=== PATIENT | male | born 1995 ===

== ENCOUNTER 2018-06-12 11:08 | Emergency (ER) | payer SELFPAY ==
--- NOTE | 2018-06-12 11:19 | ER Report ---
History and Physical Time Seen By MD: 11:19 Hx. of Stated Complaint: COUGH, CHILLS AND BODY ACHES THAT STARTED YESTERDAY HPI/ROS CHIEF COMPLAINT: Cough, body aches, chills and sweats HISTORY OF PRESENT ILLNESS: 23-year-old male patient presents to emergency room with complaint of cough, body aches, chills and sweats. Patient states this started yesterday. Patient states he's feeling fine until this started. He states that he may have had a fever, he is unsure as he has not checked it. He denies any nausea, vomiting or diarrhea. Patient states he does have the same cough that he had a year ago when he had pertussis. He states he is not able to be vaccinated for pertussis is concerning may have gotten it again. He states that he is achy all over. He states he is not taking any medication for this. REVIEW OF SYSTEMS: Respiratory: As noted above Cardiovascular: No chest pain, no palpitations. Gastrointestinal: No vomiting, no abdominal pain. Musculoskeletal: No back pain. Allergies: Coded Allergies: Pertussis Vaccines (Verified Allergy, Mild, RASH, 06/12/18) Home Meds Active Scripts Oseltamivir Phosphate (TAMIFLU) 75 Mg Cap, 75 MG PO BID, #10 CAP Prov:CARLITOS MINER [employer] 06/12/18 Reported Medications Venlafaxine Hcl (EFFEXOR XR) 150 Mg Cap.er.24h, 150 MG PO QDAY 06/12/18 Past Medical/Surgical History Patient has a past medical history of depression, pertussis. Patient has a surgical history of tissue removed. Reviewed Nurses Notes: Yes Hx Substance Use Disorder: No Constitutional Vital Sign - Last 24 Hours 06/12/18 06/12/18 06/12/18 06/12/18 11:11 11:14 11:38 12:08 Temp 98.8 Pulse 108 105 100 Resp 16 B/P (MAP) 117/73 (88) 117/73 Pulse Ox 93 92 93 O2 Delivery Room Air 06/12/18 06/12/18 12:10 12:12 B/P (MAP) 113/72 (86) 113/72 (86) Pulse Ox 95 O2 Delivery Room Air Physical Exam General Appearance: The patient is alert, has no immediate need for airway protection and no current signs of toxicity. Respiratory: Chest is non tender, lungs are clear to auscultation. Cardiac: regular rhythm, patient is tachycardic. Gastrointestinal: Abdomen is soft and non tender, no masses, bowel sounds normal. Musculoskeletal: Neck: Neck is supple and non tender. Extremities have full range of motion and are non tender. Skin: No rashes or lesions. DIFFERENTIAL DIAGNOSIS: After history and physical exam differential diagnosis was considered for viral influenza, pneumonia, pertussis. Medical Decision Making Data Points Result Diagram: 06/12/18 1134 06/12/18 1134 Laboratory Hematology Test 06/12/18 11:13 06/12/18 11:34 Influenza Virus Type A (PCR) Positive (NEGATIVE) Influenza Virus Type B (PCR) Negative (NEGATIVE) Red Blood Count 5.02 M/uL (4.00-5.60) Mean Corpuscular Volume 91.6 fL (80.0-96.0) Mean Corpuscular Hemoglobin 31.6 pg (26.0-33.0) Mean Corpuscular Hemoglobin Concent 34.4 g/dL (32.0-36.0) Red Cell Distribution Width 12.7 % (11.5-14.5) Mean Platelet Volume 7.5 fL (7.2-11.1) Neutrophils (%) (Auto) 85.7 % (39.4-72.5) Lymphocytes (%) (Auto) 5.8 % (17.6-49.6) Monocytes (%) (Auto) 6.4 % (4.1-12.4) Eosinophils (%) (Auto) 1.6 % (0.4-6.7) Basophils (%) (Auto) 0.5 % (0.3-1.4) Nucleated RBC Relative Count (auto) 0.0 /100WBC Neutrophils # (Auto) 5.2 K/uL (2.0-7.4) Lymphocytes # (Auto) 0.4 K/uL (1.3-3.6) Monocytes # (Auto) 0.4 K/uL (0.3-1.0) Eosinophils # (Auto) 0.1 K/uL (0.0-0.5) Basophils # (Auto) 0.0 K/uL (0.0-0.1) Nucleated RBC Absolute Count (auto) 0.00 K/uL Sodium Level 137 mmol/L (137-145) Potassium Level 3.9 mmol/L (3.5-5.0) Chloride Level 104 mmol/L (98-107) Carbon Dioxide Level 22 mmol/L (22-30) Blood Urea Nitrogen 15 mg/dl (9-21) Creatinine 0.90 mg/dl (0.66-1.25) Glomerular Filtration Rate Calc > 60.0 Random Glucose 124 mg/dl (75-110) Calcium Level 9.3 mg/dl (8.4-10.2) Total Bilirubin 0.4 mg/dl (0.2-1.3) Aspartate Amino Transf (AST/SGOT) 77 U/L (0-35) Alanine Aminotransferase (ALT/SGPT) 140 U/L (0-56) Alkaline Phosphatase 95 U/L (0-126) Total Protein 7.5 g/dl (6.3-8.2) Albumin 4.4 g/dl (3.5-5.0) Chemistry Test 06/12/18 11:13 06/12/18 11:34 Influenza Virus Type A (PCR) Positive (NEGATIVE) Influenza Virus Type B (PCR) Negative (NEGATIVE) White Blood Count 6.0 k/uL (4.5-11.0) Red Blood Count 5.02 M/uL (4.00-5.60) Hemoglobin 15.8 g/dL (14.0-18.0) Hematocrit 46.0 % (42.0-52.0) Mean Corpuscular Volume 91.6 fL (80.0-96.0) Mean Corpuscular Hemoglobin 31.6 pg (26.0-33.0) Mean Corpuscular Hemoglobin Concent 34.4 g/dL (32.0-36.0) Red Cell Distribution Width 12.7 % (11.5-14.5) Platelet Count 239 K/uL (150-450) Mean Platelet Volume 7.5 fL (7.2-11.1) Neutrophils (%) (Auto) 85.7 % (39.4-72.5) Lymphocytes (%) (Auto) 5.8 % (17.6-49.6) Monocytes (%) (Auto) 6.4 % (4.1-12.4) Eosinophils (%) (Auto) 1.6 % (0.4-6.7) Basophils (%) (Auto) 0.5 % (0.3-1.4) Nucleated RBC Relative Count (auto) 0.0 /100WBC Neutrophils # (Auto) 5.2 K/uL (2.0-7.4) Lymphocytes # (Auto) 0.4 K/uL (1.3-3.6) Monocytes # (Auto) 0.4 K/uL (0.3-1.0) Eosinophils # (Auto) 0.1 K/uL (0.0-0.5) Basophils # (Auto) 0.0 K/uL (0.0-0.1) Nucleated RBC Absolute Count (auto) 0.00 K/uL Glomerular Filtration Rate Calc > 60.0 Calcium Level 9.3 mg/dl (8.4-10.2) Total Bilirubin 0.4 mg/dl (0.2-1.3) Aspartate Amino Transf (AST/SGOT) 77 U/L (0-35) Alanine Aminotransferase (ALT/SGPT) 140 U/L (0-56) Alkaline Phosphatase 95 U/L (0-126) Total Protein 7.5 g/dl (6.3-8.2) Albumin 4.4 g/dl (3.5-5.0) EKG/Imaging Imaging Study: Frontal and lateral views of the chest Indication: Cough, shortness of breath, chest tightness Comparison study: None Findings: PA and lateral views of the chest demonstrate no evidence of acute infiltrate. There is no evidence of pleural effusion. There is no evidence of pneumothorax. The mediastinal, cardiac, and diaphragmatic contours are unremarkable. The visualized bony structures are unremarkable. IMPRESSION: Unremarkable chest. Report Dictated By: Cristiano Allen at 06/12/2018 11:55 AM Report E-Signed By: Cristiano Allen at 06/12/2018 11:56 AM ED Course/Re-evaluation ED Course Patient was admitted to examined, history and physical were obtained. Differential diagnoses were considered. On examination lungs are clear, heart is regular although tachycardic at 106 bpm, abdomen is soft and nontender. Patient states he has a history of pertussis. As a result a blood draw was done checking for a CBC, CMP as well as pertussis. Patient was checked for influenza. I believe that is really the underlying cause of this infection. The labs were unremarkable, no signs of bacterial infection. I did discuss with patient we will not have the pertussis back for several days although he was positive for influenza A. I believe that ultimately underlying cause of his infection. We'll go ahead and treat him with Tamiflu as symptoms just started yesterday. Patient is return to emergency room if condition worsens. If he does hospitalist nocturnist physician to be positive for pertussis we will go ahead and treat him at that time with azithromycin. Patient verbalized understanding and agreement with plan. Decision to Disposition Date: Jun 12, 2018 Decision to Disposition Time: 12:08 Depart Departure Latest Vital Signs Vital Signs Date Time Temp Pulse Resp B/P (MAP) Pulse Ox O2 Delivery O2 Flow Rate FiO2 06/12/18 12:12 113/72 (86) 95 Room Air 06/12/18 12:08 100 06/12/18 11:14 98.8 16 Impression: Primary Impression: Influenza A Condition: Improved Disposition: HOME OR SELF-CARE New Scripts Oseltamivir Phosphate (TAMIFLU) 75 Mg Cap 75 MG PO BID, #10 CAP Prov: CARLITOS MINER 06/12/18 Patient Instructions: Influenza (ED) Additional Instructions: Increase fluid intake. Get plenty of rest. Take Tylenol or Ibuprofen as needed for fevers. Stay home until you are fever free for 24 hours. Return to the ER if condition worsens. Follow up with your primary care provider in the next week with any concerns. CARLITOS MINER Jun 12, 2018 11:19
[2018-06-12] MEDS ORDERED: VENL150C61 PO (11:22)
[2018-06-12 11:40] LABS: PLATELET COUNT, AUTOMATED 239 K/uL (150-450)
--- NOTE | 2018-06-12 12:00 | RADIOLOGY IMAGING REPORT ---
[place] [facility] [place] Manuelito Perez : 1995 MR: [id number] V: [id number] EXAM DATE: ORDERING PHYSICIAN: CARLITOS MINER TECHNOLOGIST: Location: [facility] Patient: Manuelito Perez : 1995 Visit/Account:[id number] Date of Sevice: 06/12/2018 Study: Frontal and lateral views of the chest Indication: Cough, shortness of breath, chest tightness Comparison study: None Findings: PA and lateral views of the chest demonstrate no evidence of acute infiltrate. There is no evidence of pleural effusion. There is no evidence of pneumothorax. The mediastinal, cardiac, and diaphragmatic contours are unremarkable. The visualized bony structures are unremarkable. IMPRESSION: Unremarkable chest. Report Dictated By: Cristiano Allen at 06/12/2018 11:55 AM Report E-Signed By: Cristiano Allen at 06/12/2018 11:56 AM WSN:[email or web address]
[2018-06-12] MEDS ORDERED: OSE75 PO (12:07)
[2018-06-12 12:12] VITALS: BP 113/72
== END 2018-06-12 12:23 | disposition home or self-care (01) ==
LOC: ER 11:12
DX: J09.X2 Influenza due to identified novel influenza A virus with other respiratory manifestations (principal)
CPT/HCPCS: 71046; 82040; 82247; 82310; 82374; 82435; 82565; 82947; 84075; 84132; 84155; 84295; 84450; 84460; 84520; 85025; 86615; 87502; 99283

== ENCOUNTER 2018-12-04 12:10 | Emergency (ER) | payer SELFPAY ==
[~2018-12-04 12:10] MED LIST: OSE75 PO; VENL150C61 PO
[2018-12-04] MEDS ORDERED: ARI2 PO (12:45)
--- NOTE | 2018-12-04 12:47 | ER Report ---
History and Physical Time Seen By MD: 12:30 Hx. of Stated Complaint: PATIENT REPORTS THAT THEY ARE TRANSGENDERED. PATIENT REPORTS INCREASED DEPRESSION AND SUICIDAL IDEATION AFTER A RECENT BREAKUP. HPI/ROS CHIEF COMPLAINT: suicidal ideation HISTORY OF PRESENT ILLNESS: Patient is a 23 yo M with medical history of depress ion was brought in by a friend today with suicidal ideation, one month after a break-up with his girlfriend of three years. He reports that him and his ex- girlfriend continue to live together and she has now started seeing someone else. He woke up this morning with the idea of flipping his car on the highway, although he did not act on this. He treats his depression with venlafaxine 225 mg and aripiprazole 2 mg, but did not take his daily doses today. He reports prior episode of suicidal ideation and hospitalization when he was 15 yo. He was assigned a counselor at [facility] in the past, but did not connect well and chose not to continue with counseling. He states that his mom, who lives in [place], is very supportive, but he wishes she lived closer. He admits that he feels as though he is grieving, and that his depression has been interfering with his daily functioning, including being unable to work. REVIEW OF SYSTEMS: Constitutional: No fever, no chills. Eyes: No discharge. ENT: No sore throat. Cardiovascular: No chest pain, no palpitations. Respiratory: No cough, no shortness of breath. Gastrointestinal: No abdominal pain, no vomiting. Genitourinary: No hematuria. Musculoskeletal: No back pain. Skin: No rashes. Neurological: No headache. Allergies: Coded Allergies: Pertussis Vaccines (Verified Allergy, Mild, RASH, 06/12/18) Home Meds Reported Medications Aripiprazole (ABILIFY) 2 Mg Tablet, 2 MG PO QDAY, TAB 12/04/18 Venlafaxine Hcl (EFFEXOR XR) 150 Mg Cap.er.24h, 225 MG PO QDAY 06/12/18 Discontinued Scripts Oseltamivir Phosphate (TAMIFLU) 75 Mg Cap, 75 MG PO BID, #10 CAP Prov:CARLITOS MINER [employer]ARMENT FINISHER 06/12/18 Past Medical/Surgical History The patient has a past medical and surgical history of depression, transgender, did receive hormone therapy. Reviewed Nurses Notes: Yes Hx Substance Use Disorder: No Constitutional Vital Sign - Last 24 Hours 12/04/18 12/04/18 12/04/18 12/04/18 12:17 12:19 12:30 12:40 Temp 98.2 Pulse 77 74 Resp 20 B/P (MAP) 130/73 (92) 130/73 118/83 (95) Pulse Ox 90 92 O2 Delivery Room Air 12/04/18 12/04/18 12/04/18 12/04/18 13:00 13:30 14:00 14:41 B/P (MAP) 118/72 (87) 106/61 (76) 112/63 (79) 105/61 (76) Physical Exam General Appearance: The patient is alert, has no immediate need for airway pr otection and no signs of toxicity. Tearful with poor eye contact Eyes: Pupils equal and round no pallor or injection. ENT, Mouth: Mucous membranes are moist. Respiratory: There are no retractions, lungs are clear to auscultation. Cardiovascular: Regular rate and rhythm. Gastrointestinal: Abdomen is soft and non tender, no masses, bowel sounds normal. Neurological: No focal neurological deficits, able to move all extremities Skin: Warm and dry, no rashes. Musculoskeletal: Neck is supple non tender. Extremities are nontender, nonswollen and have full range of motion. Psych: mood is depressed/tearful, flat affect, organized thought process, suicidal ideation but no homicidal ideation/delusions/auditory or visual hallucinations. Sitting erect, making good eye contact, cooperative. DIFFERENTIAL DIAGNOSIS: After history and physical exam differential diagnosis was considered for suicidal ideation and depression, bereavement. Medical Decision Making Data Points Result Diagram: 12/04/18 1322 12/04/18 1322 Laboratory Hematology Test 12/04/18 13:22 White Blood Count 5.5 k/uL (4.5-11.0) Red Blood Count 4.93 M/uL (4.00-5.60) Hemoglobin 15.7 g/dL (14.0-18.0) Hematocrit 45.4 % (42.0-52.0) Mean Corpuscular Volume 92.0 fL (80.0-96.0) Mean Corpuscular Hemoglobin 31.9 pg (26.0-33.0) Mean Corpuscular Hemoglobin Concent 34.7 g/dL (32.0-36.0) Red Cell Distribution Width 12.4 % (11.5-14.5) Platelet Count 337 K/uL (150-450) Mean Platelet Volume 7.5 fL (7.2-11.1) Neutrophils (%) (Auto) 73.3 % (39.4-72.5) H Lymphocytes (%) (Auto) 17.8 % (17.6-49.6) Monocytes (%) (Auto) 7.9 % (4.1-12.4) Eosinophils (%) (Auto) 0.5 % (0.4-6.7) Basophils (%) (Auto) 0.5 % (0.3-1.4) Nucleated RBC Relative Count (auto) 0.0 /100WBC Neutrophils # (Auto) 4.1 K/uL (2.0-7.4) Lymphocytes # (Auto) 1.0 K/uL (1.3-3.6) L Monocytes # (Auto) 0.4 K/uL (0.3-1.0) Eosinophils # (Auto) 0.0 K/uL (0.0-0.5) Basophils # (Auto) 0.0 K/uL (0.0-0.1) Nucleated RBC Absolute Count (auto) 0.00 K/uL Chemistry Test 12/04/18 13:22 Sodium Level 139 mmol/L (137-145) Potassium Level 4.0 mmol/L (3.5-5.0) Chloride Level 105 mmol/L (98-107) Carbon Dioxide Level 21 mmol/L (22-30) Blood Urea Nitrogen 14 mg/dl (9-21) Creatinine 0.80 mg/dl (0.66-1.25) Glomerular Filtration Rate Calc > 60.0 Random Glucose 96 mg/dl (75-110) Calcium Level 9.5 mg/dl (8.4-10.2) Magnesium Level 1.9 mg/dl (1.7-2.2) Total Bilirubin 0.8 mg/dl (0.2-1.3) Aspartate Amino Transf (AST/SGOT) 21 U/L (0-35) Alanine Aminotransferase (ALT/SGPT) 31 U/L (0-56) Alkaline Phosphatase 94 U/L (0-126) Total Protein 7.9 g/dl (6.3-8.2) Albumin 4.6 g/dl (3.5-5.0) Thyroid Stimulating Hormone (TSH) 0.45 uIU/ml (0.46-4.68) Toxicology Test 12/04/18 12:15 12/04/18 13:22 Urine Opiates Screen Negative Urine Barbiturates Screen Negative Ur Tricyclic Antidepressants Screen Negative Urine Phencyclidine Screen Negative Urine Amphetamines Screen Negative Urine Benzodiazepines Screen Negative Urine Cocaine Screen Negative Urine Cannabinoids Screen Negative Salicylates Level < 10 mg/L Salicylate Last Dose Date unk Acetaminophen Level < 10 ug/ml Serum Alcohol < 10 mg/dl Urinalysis Test 12/04/18 12:15 Urine Color Yellow Urine Clarity Clear Urine pH 6.0 pH (4.8-9.5) Urine Specific [place] 1.016 Urine Protein Negative mg/dL (NEGATIVE) Urine Glucose (UA) Negative mg/dL (NEGATIVE) Urine Ketones 20 mg/dL (NEGATIVE) Urine Blood Small (NEGATIVE) Urine Nitrite Negative (NEGATIVE) Urine Bilirubin Negative (NEGATIVE) Urine Urobilinogen Negative mg/dL (0.2-1.9) Urine Leukocyte Esterase Negative (NEGATIVE) Urine RBC <1 /HPF (0-2/HPF) Urine WBC 2 /HPF (0-5/HPF) Urine Squamous Epithelial Cells Few /LPF (</=FEW) Urine Bacteria Negative /HPF (NONE-FEW) Urine Mucus None /HPF (NONE-FEW) ED Course/Re-evaluation ED Course The patient was admitted to room. A history and physical obtained. Differential diagnoses were considered. CBC, CMP, psych panel were obtained. UA was collected. Lab studies unremarkable. There was a small amount of blood noted in the urine, I did discuss this with the patient, as the patient is still biologically female, does "spot"once in a while, this is likely the source of the blood. We did speak with Dr. Rosario the psychiatrist on-call, he is accepting the patient and the behavioral health unit, the patient did sign into the behavioral health unit voluntarily for suicidal ideation, he does understand that he needs help and is very willing to get to help that is needed. 12/04/2018 1:03:37 pm Patient reports that he has not taken daily dose of venlafaxine or aripiprazole, was given venlafaxine 225 mg and aripiprazole 2 mg. 12/04/2018 1:58:51 pm We spoke with Dr. Rosario, the psychiatrist road production general manager. He has accepted the patient to the behavioral health unit. Decision to Disposition Date: Dec 04, 2018 Decision to Disposition Time: 13:03 Depart Departure Latest Vital Signs Vital Signs Date Time Temp Pulse Resp B/P (MAP) Pulse Ox O2 Delivery O2 Flow Rate FiO2 12/04/18 14:41 105/61 (76) 12/04/18 12:40 74 92 12/04/18 12:19 98.2 20 Room Air Impression: Primary Impression: Suicidal ideation Condition: Improved Disposition: XFER TO [facility] BERNICE CHAUDHRY GARMENT FINISHER-BC Dec 04, 2018 12:47
[2018-12-04] MEDS ORDERED: ARIPiprazole 2 MG TAB PO ONE (12:50)
[2018-12-04] MEDS ORDERED: VENLAFAXINE PO ONE (12:50)
[2018-12-04] MEDS ORDERED: [UNRECOGNIZED DRUG - OTHER] PO ONE (12:50)
[2018-12-04] MEDS ORDERED: NICOTINE INH SYSTEM 10 MG/INH INH PRN (13:30)
[2018-12-04 13:51] LABS: PLATELET COUNT, AUTOMATED 337 K/uL (150-450)
[2018-12-04 14:41] VITALS: BP 105/61
== END 2018-12-04 14:58 | disposition home or self-care (01) ==
LOC: ER 12:17
DX: R45.851 Suicidal ideations (principal); R31.9 Hematuria, unspecified
CPT/HCPCS: 80305; 80320; 80329; 81001; 82040; 82247; 82310; 82374; 82435; 82565; 82947; 83735; 84075; 84132; 84155; 84295; 84443; 84450; 84460; 84520; 85025; 99284

== ENCOUNTER 2018-12-04 14:06 | Inpatient (IN) | payer SELFPAY ==
[~2018-12-04 14:06] MED LIST changes: +ARI2 PO
[2018-12-04] MEDS ORDERED: ACETAMINOPHEN 325 MG TAB PO PRN (17:20)
[2018-12-04] MEDS ORDERED: MAG HYD/AL HYD/SIMETH 30ML UDC PO PRN (17:20)
[2018-12-04] MEDS ORDERED: NICOTINE CARTRIDGE 1 EA PO PRN (17:25)
[2018-12-04] MEDS: NICOTINE INH SYSTEM 10 MG/INH INH PRN (18:55)
[2018-12-04] MEDS: QUEtiapine FUM 100 MG TAB PO SCH (20:57)
[2018-12-04 21:20] VITALS: BP 125/86
[2018-12-05 06:29] VITALS: BP 118/77
[2018-12-05] MEDS: MULTIVITAMINS PO SCH (08:11)
[2018-12-05] MEDS: ARIPiprazole 2 MG TAB PO SCH (08:11)
[2018-12-05] MEDS: VENLAFAXINE XR 75 MG CAPCR PO SCH (08:12)
[2018-12-05] MEDS: NICOTINE INH SYSTEM 10 MG/INH INH PRN ×2 (09:28→15:50)
[2018-12-05] MEDS: QUEtiapine FUM 100 MG TAB PO SCH (20:47)
[2018-12-05 20:59] VITALS: BP 132/77
[2018-12-06] MEDS: NICOTINE INH SYSTEM 10 MG/INH INH PRN ×3 (01:32→12:53)
[2018-12-06 04:31] VITALS: BP 110/67
[2018-12-06] MEDS: VENLAFAXINE XR 75 MG CAPCR PO SCH (07:59)
[2018-12-06] MEDS: MULTIVITAMINS PO SCH (08:00)
[2018-12-06] MEDS: ARIPiprazole 2 MG TAB PO SCH (08:00)
--- NOTE | 2018-12-06 08:54 | SCHAAF H&P ---
DATE OF ADMISSION: December 04, 2018 ATTENDING PHYSICIAN Chaz Rosario MD The patient was seen at approximately 1000 hours in the a.m. of December 05, 2018 for note concerning this dictation. PRESENTING PROBLEM, CHIEF COMPLAINT "Yesterday I got upset and depressed". HISTORY OF PRESENT ILLNESS This is a very pleasant 23-year-old transgender patient, genetically female, long process of transformation to male. The patient very polite, cooperative, appears to be an accurate historian. States that yesterday, "I thought I would hurt myself and I went to [facility] where I have had care before". The patient reports that [facility] thought he should come to the emergency room for evaluation. The patient was admitted on a voluntary basis for increasing thoughts of self-harm and vague suicidal ideation. During interview, the patient reports 50% of the reason he is here he believes is for breakup. The patient reports he was in a relationship with a female who broke up with him after a relationship of about 3 years. She has since started to see someone else. This bothered the patient tremendously. The patient reports other identifiable stressors are not a paramount in his life right now or work and finances which are stressful as well. The breakup occurred about one month ago. When asked about depressive symptoms, the patient eludes that he probably has a seasonal component to his depression. He has been losing weight. Part of this is after the removal of Seroquel from his outpatient medications a while back, but patient also reports he has lost his appetite. Denies any significant guilt or remorse. Reports his energy is down, concentration remains variable. He has lost some interest probably in activities he used to enjoy and the patient does report the manifestation of vague suicidal thoughts. The patient has noted that he sleeps poorly at night overall and reports his mood today is much improved as a 5 out of 10 and reports that his mood upon arrival to the ER was a 1 out of 10, indicating as low as he can possibly get. The patient denies any history of tono or psychosis. The patient does report some panic attacks throughout his life and these do not seem to be significant nature now. He does report some out of the blue symptoms. The patient denies PTSD, phobias, anorexia, bulimia. The patient denies OCD symptoms. The patient noted to be self-harming from the ages of 11 to 15 and this has since resolved. The patient states he no longer engages in this activity and these were not suicide attempts when they occurred. The patient reports somatization symptoms in the form of nausea and tension and poor sleep when the patient is under stress. MENTAL HEALTH HISTORY The patient has never been an inpatient on the psychiatric floor before. He sees Kelsey Smith who is currently prescribing Effexor and Abilify on an outpatient basis. The patient is not believed to be in therapy at this time, and patient denies a history of suicide attempt. FAMILY PSYCHIATRIC HISTORY The patient reports that both his mother and his father suffer from depressive and anxious type symptoms. The patient reports schizophrenia runs in uncles on the mother's side. Denies alcohol or drug use in the family history and reports a full blood brother may suffer from bipolar illness. The patient does have one uncle on his mother's side that did commit suicide PAST MEDICAL HISTORY The patient has had breast reduction surgery in 2013, again secondary to transgender status and patient has been taking testosterone with no changes in this medication for the last 7 years. This is noted to be in injectable form. The patient reports allergies to pertussis vaccine and patient reported asthma as a child which he outgrew and denies any other health problems. SOCIAL HISTORY The patient was born [place], [place] and raised there. Parents were at the time of his . They did divorce when the patient was an adult. He denies experiencing any violence in the home growing up and reports a good childhood overall. The patient has two older brothers. He graduated from high school and attended some college with the intention of going back some day. 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 He has never been in the . He never . No current significant other. He has no children and lives here in [place]. LEGAL HISTORY Unremarkable. SUBSTANCE ABUSE HISTORY The patient reports cannabis use at times. The patient reports he tried cocaine in the past and he reported a good experience with this but no longer uses it and he uses minimal alcohol. PHYSICAL EXAMINATION Please see emergency room note. Notable for a healthy appearing 23-year-old genetic female, transitioning to male. The patient calm, cooperative, and pleasant in the emergency room and no acute medical distress. Vital signs at the time of admission: Temperature 98.2, pulse 77, respiratory rate 20, blood pressure 130/73 and pulse oximetry 90% on room air. LABORATORY DATA CBC was unremarkable. CMP was unremarkable. TSH 0.45, slightly low. Urinalysis overall unremarkable as well. Toxicology screen was negative for substances of abuse with a nondetectable serum alcohol level with a urine HCG which was negative. MENTAL STATUS EXAMINATION GENERAL APPEARANCE, BEHAVIOR AND ATTITUDE: This is a well-groomed 23-year-old genetic female, transitioning to male. The patient interacting very well with this provider and other treatment team staff. Very polite, cooperative, appeared to be an accurate historian. No periods of tearfulness. SPEECH: Within normal limits. Regular rate, rhythm, volume and tone. MOOD: Described as improving. AFFECT: Full at times and overall mood-congruent. THOUGHT PROCESSES: Logical and goal-directed, no loose associations or flight of ideas. THOUGHT CONTENT: Free of auditory or visual hallucinations, ideas of reference, thought broadcastings, delusions, obsessions or compulsions. The patient eluding to thoughts of self-harm, vague suicidal thoughts prior to admission are now resolving quickly. Denying any homicidal ideations. SENSORIUM: Clear. COGNITION: Alert and oriented to person, place, time and situation. MEMORY: Immediate, recent and remote estimated intact. INTELLIGENCE: Average, based on interview. INSIGHT AND JUDGMENT: Considered grossly intact. The patient presenting voluntarily for treatment during episode of increasing depressive symptoms. ASSESSMENT This is a very polite, cooperative 23-year-old genetic female, transitioning to male. The patient interacting very well, appears to be an accurate historian. It is likely that the main stressor in the patient's life resulted in decompensating mood. The patient likely has underlying persisting depressive disorder as well. The patient denies any symptoms of sleep apnea that have been witnessed or that he has noticed at home. Poor sleep could be related to testosterone injections which do not give am variation. Will focus on improving sleep and therapy during this admission and appropriate ongoing follow up. DIAGNOSES PER DSM-V 1. Persisting depressive disorder. 2. Adjustment disorder with depressed mood concerning relationship breakup. 3. The patient has likely supportive relationship with family. PLAN 1. Will admit to the unit. 2. Necessary precautions will be implemented. 3. The patient will participate in individual and group therapy. 4. Medications will be addressed. Will continue outpatient medications for now with the addition of sedating night-time medication. Will likely use Seroquel in low-dose at this time. 5. Collateral information to be obtained as necessary. 6. Estimated length of stay 3 to 5 days. MTDD
[2018-12-06] MEDS ORDERED: QUET50TA21 PO (10:04)
[2018-12-06] MEDS ORDERED: MULT-859 PO (10:04)
[2018-12-06] MEDS ORDERED: NIC10R INH (10:05)
[2018-12-06 12:35] VITALS: BP 108/64
--- NOTE | 2018-12-07 13:33 | SCHAAF DISCHARGE ---
DATE OF ADMISSION: December 04, 2018. DATE OF DISCHARGE: December 06, 2018. ATTENDING PHYSICIAN Chaz Rosario MD The patient was seen at approximately 0900 hours on December 06, 2018 for note concerning this dictation. FINAL DIAGNOSES 1. Persistent depressive disorder. 2. Adjustment disorder with depressed mood. 3. Cannabis use. 4. The patient has a supportive relationship with family members. REASON FOR ADMISSION This is a very pleasant, cooperative 23-year-old male who was admitted on a voluntary basis. The patient was experiencing increasing depressive symptoms with thoughts of self-harming. The patient was admitted without incident. Very polite, cooperative, appeared to be a very accurate historian throughout his stay. The patient took an active role in individual and group therapy. Seroquel was added as the patient had been experiencing poor sleep at 50 mg at bedtime with good results. The patient remained on Effexor 225 mg daily and Abilify 2 mg daily. The patient was able to process through recent stressors and breakup with significant other. Any thoughts of self-harm or suicidal ideation resolved. Appetite and mood good. The patient was discharged home. PHYSICAL EXAMINATION Please see emergency room note. Vital signs at the time of admission: Temperature 98.2, pulse 77, respiratory rate 20, blood pressure 130/73 and pulse oximetry 90% on room air. Vital signs at the time of discharge: Temperature 98.3, pulse 88, respiratory rate 16, blood pressure 108/64 and pulse oximetry 95% on room air. LABORATORY DATA screen was negative on this female who is a transgender male. CBC unremarkable. CMP unremarkable. TSH 0.45, slightly low. Urinalysis notable for urine ketones, small urine blood with nondetectable red blood cells. Toxicology screen negative with a nondetectable serum alcohol level. MENTAL STATUS EXAMINATION GENERAL APPEARANCE, BEHAVIOR AND ATTITUDE: This is polite, cooperative 23-year-old male, making good eye contract. No periods of tearfulness. Nos psychomotor agitation or retardation. Interacting well with this provider, other treatment team staff, and his mother present on the phone. SPEECH: Within normal limits. Regular rate, rhythm, volume and tone. MOOD: Described as good. AFFECT: Full and mood-congruent. THOUGHT PROCESSES: Logical and goal-directed, no loose associations or flight of ideas. THOUGHT CONTENT: Free of auditory or visual hallucinations, ideas of reference, thought broadcastings, delusions, obsessions or compulsions. The patient adamantly denying suicidal or homicidal ideation. No parasuicidal behavior seen on the unit. SENSORIUM: Clear. COGNITION: Alert and oriented to person, place, time and situation. MEMORY: Immediate, recent and remote was estimated intact. INTELLIGENCE: Average, based on interview. INSIGHT AND JUDGMENT: Considered grossly intact and appropriate for outpatient care in the absence of any substance use. RESULTS OF TESTING Imaging: None. Laboratory data: See above. Psychological testing: Not done. CONSULTATIONS None. TREATMENT Patient received medications, participated in individual and group therapy. HOSPITAL COURSE The patient was admitted without incident. From the start, took an active role in his treatment. Outpatient medications including Effexor and Abilify were continued. Seroquel was added at 50 mg q. nightly. The patient was having poor sleep largely in reaction to recent identifiable stressors. The patient quickly improved. No parasuicidal behaviors were seen. CONDITION OF PATIENT ON DISCHARGE Stable. Considered a minimal risk to himself or others, appropriate for outpatient care. DISPOSITION The patient was discharged to home. He would follow up with outpatient medication and therapy appointments. He agreed to stop cannabis, take medications as prescribed as patient notably had not been Effexor as he should. The Crisis Line was given should symptoms return. MEDICATIONS AT DISCHARGE 1. Effexor XR 225 mg p.o. q. a.m. 2. Abilify 2 mg q. am. 3. Seroquel 50 mg q. nightly. The risks, benefits and alternatives of the above discharge plan were discussed. Informed consent was given to proceed with the above discharge plan by this competent patient. NICK
== END 2018-12-06 15:55 | disposition home or self-care (01) | DRG 881 ==
LOC: BHS 14:06
PROVIDERS: ADMIT Psychiatry & Neurology Psychiatry; ATTEND Psychiatry & Neurology Psychiatry
DX: F34.1 Dysthymic disorder (principal); R45.851 Suicidal ideations; F43.21 Adjustment disorder with depressed mood; G47.00 Insomnia, unspecified; Z81.8 Family history of other mental and behavioral disorders; Z88.7 Allergy status to serum and vaccine
CPT/HCPCS: 81025